=== PATIENT | male | born 1970 | race Caucasian/White ===

== ENCOUNTER 2021-06-27 14:45 | Emergency (ER) | payer BC, OTHER | END 2021-06-27 16:04 | disposition home or self-care (01) | LOC: MADERS 14:45 | DX: E11.621 Type 2 diabetes mellitus with foot ulcer (principal); L97.529 Non-pressure chronic ulcer of other part of left foot with unspecified severity; E11.65 Type 2 diabetes mellitus with hyperglycemia; I10 Essential (primary) hypertension; F17.220 Nicotine dependence, chewing tobacco, uncomplicated | CPT/HCPCS: 87070; 87077; 87186; 87205 ==

== ENCOUNTER 2021-09-28 08:28 | Emergency (ER) | payer BC, OTHER ==
[~2021-09-28 08:28] MED LIST: Sodium Chloride 0.9% 1,000 ML BAG ONE
[2021-09-28 09:08] LABS: #Basophils 0.1 thou/uL (0.0-0.2)
[2021-09-28 09:12] LABS: #Eosinphils 0.6 thou/uL (0.0-0.7); #Lymphocytes 2.2 thou/uL (1.20-3.40); #Monocytes 0.9 thou/uL (0.11-0.59); #Neutrophils 3.8 thou/uL (1.40-6.50); %Basophils 1.6 % (0.0-1.0); %Eosinophils 7.9 % (0.0-10.0); %Lymphocytes 29.3 % (21.0-51.0); %Monocytes 11.6 % (0.0-10.0); %Neutrophils 49.7 % (42.0-75.0); Hemoglobin 13.6 g/dL (14.0-18.0); Mean Corpuscular Hemoglobin 30.5 pg (27.0-31.0); Mean Corpuscular Volume 95.3 fL (78.0-98.0); Mean Platelet Volume 8.5 fL (7.4-10.4); Platelet Count 261 thou/uL (130-400); RBC Distribution Width 11.7 % (11.5-14.5); Red Blood Cell (RBC) Count 4.45 mill/uL (4.70-6.10); White Blood Cell (WBC) Count 7.6 thou/uL (4.8-10.8)
[2021-09-28 09:19] LABS: INR-International Normal Ratio 0.9; Prothrombin Time 12.4 sec (12.0-14.7)
[2021-09-28 09:20] LABS: PTT 27.2 sec (22.9-36.1)
[2021-09-28 09:30] LABS: ALT (SGPT) 49 U/L (8-55); AST (SGOT) 66 U/L (5-34); Albumin 4.3 g/dL (3.5-5.0); Alkaline Phosphatase 98 U/L (40-110); Anion Gap 14 mmol/L (10-20); BUN (Urea Nitrogen) 10 mg/dL (8.4-25.7); Bilirubin, Total 0.5 mg/dL (0.2-1.2); Calc. Creatinine Clearance 0 mL/min (70-130); Calcium 10.2 mg/dL (7.8-10.44); Carbon Dioxide 30 mmol/L (22-29); Chloride 101 mmol/L (98-107); Globulin 3.3 g/dL (2.4-3.5); Glucose 156 mg/dL (70-105); Potassium 4.8 mmol/L (3.5-5.1); Protein, Total 7.6 g/dL (6.0-8.3); Sodium 140 mmol/L (136-145)
== END 2021-09-28 09:50 | disposition home or self-care (01) ==
LOC: MADERS 08:28
DX: K64.4 Residual hemorrhoidal skin tags (principal); E78.5 Hyperlipidemia, unspecified; E78.00 Pure hypercholesterolemia, unspecified; E11.9 Type 2 diabetes mellitus without complications; I10 Essential (primary) hypertension; F17.220 Nicotine dependence, chewing tobacco, uncomplicated; Z79.4 Long term (current) use of insulin; Z79.899 Other long term (current) drug therapy
CPT/HCPCS: 80053; 82274; 85025; 85610; 85730; 86850; 86900; 86901; 99283; J7050

== ENCOUNTER 2021-11-04 13:19 | Outpatient (CLI) | payer BC, OTHER ==
[2021-11-04 13:57] LABS: #Basophils 0.1 thou/uL (0.0-0.2); #Eosinphils 0.5 thou/uL (0.0-0.7); #Lymphocytes 2.2 thou/uL (1.20-3.40); #Monocytes 0.9 thou/uL (0.11-0.59); #Neutrophils 6.6 thou/uL (1.40-6.50); %Basophils 0.8 % (0.0-1.0); %Eosinophils 4.9 % (0.0-10.0); %Lymphocytes 21.8 % (21.0-51.0); %Monocytes 8.7 % (0.0-10.0); %Neutrophils 63.8 % (42.0-75.0); Hemoglobin 12.6 g/dL (14.0-18.0); Mean Corpuscular HGB CONC 32.9 g/dL (32.0-36.0); Mean Corpuscular Hemoglobin 30.6 pg (27.0-31.0); Mean Corpuscular Volume 93.1 fL (78.0-98.0); Mean Platelet Volume 8.7 fL (7.4-10.4); Platelet Count 290 thou/uL (130-400); RBC Distribution Width 10.8 % (11.5-14.5); Red Blood Cell (RBC) Count 4.12 mill/uL (4.70-6.10); White Blood Cell (WBC) Count 10.3 thou/uL (4.8-10.8)
[2021-11-04 14:09] LABS: ALT (SGPT) 24 U/L (8-55); AST (SGOT) 30 U/L (5-34); Albumin 4.2 g/dL (3.5-5.0); Alkaline Phosphatase 77 U/L (40-110); Anion Gap 20 mmol/L (10-20); BUN (Urea Nitrogen) 11 mg/dL (8.4-25.7); Bilirubin, Total 0.4 mg/dL (0.2-1.2); Calc. Creatinine Clearance 0 mL/min (70-130); Carbon Dioxide 20 mmol/L (22-29); Chloride 94 mmol/L (98-107); Globulin 3.2 g/dL (2.4-3.5); Glucose 197 mg/dL (70-105); Potassium 4.4 mmol/L (3.5-5.1); Protein, Total 7.4 g/dL (6.0-8.3); Sodium 130 mmol/L (136-145)
[2021-11-04 21:34] LABS: Hemoglobin A1c 9.2 % (4.0-6.0)
== END 2021-11-04 13:20 | disposition home or self-care (01) ==
LOC: MADLAB 13:19 → MADRAD 13:20
PROVIDERS: ATTEND Family Medicine
DX: Z01.810 Encounter for preprocedural cardiovascular examination (principal)
CPT/HCPCS: 36415; 71046; 80050; 83036; 93005; 93010

== ENCOUNTER 2025-07-26 00:07 | Emergency (ER) | payer BC ==
[2025-07-26] MEDS ORDERED: Albuterol 2.5 MG (0.5 mL) NEB ONE ×2 (00:25→01:02)
[2025-07-26] MEDS ORDERED: Ipratropium Bromide 2.5 ml Neb ONE ×2 (00:25→01:02)
[2025-07-26] MEDS ORDERED: Magnesium 2 GM/50 ML BAG (IN WATER) ONE (00:25)
[2025-07-26 00:43] LABS: #Basophils 0.1 thou/uL (0.0-0.2); #Eosinophils 0.7 thou/uL (0.0-0.7); #Lymphocytes 0.8 thou/uL (1.20-3.40); #Monocytes 0.9 thou/uL (0.11-0.59); #Neutrophils 6.7 thou/uL (1.40-6.50); %Basophils 1.5 % (0.0-1.0); %Eosinophils 7.7 % (0.0-10.0); %Lymphocytes 8.9 % (21.0-51.0); %Monocytes 9.3 % (0.0-10.0); %Neutrophils 72.5 % (42.0-75.0); Anisocytosis SLIGHT = 6-15 cells (100X) (0-5/hpf); Hematocrit 38.5 % (42.0-52.0); Hemoglobin 11.6 g/dL (14.0-18.0); MDiff Complete? YES; Mean Corpuscular Hemoglobin 22.5 pg (27.0-31.0); Mean Corpuscular Volume 74.9 fl (78.0-98.0); Platelet Count 381 10x3/uL (130-400); Red Blood Cell (RBC) Count 5.14 mill/uL (4.70-6.10); White Blood Cell (WBC) Count 9.3 10x3/uL (4.8-10.8)
[2025-07-26 00:46] LABS: ALT (SGPT) 52 U/L (Less than 45); AST (SGOT) 86 U/L (11-34); Albumin 4.5 g/dL (3.1-4.5); Alkaline Phosphatase 179 U/L (40-110); Anion Gap 17 mmol/L (10-20); BUN (Urea Nitrogen) 13 mg/dL (8.4-25.7); Bilirubin, Total 0.4 mg/dL (0.3-1.2); Calc. Creatinine Clearance 0 mL/min (70-130); Calcium 9.8 mg/dL (7.8-10.44); Carbon Dioxide 22 mmol/L (22-29); Chloride 99 mmol/L (98-107); Globulin 3.8 g/dL (2.4-3.5); Glucose 165 mg/dL (70-105); Potassium 5.0 mmol/L (3.5-5.1); Sodium 133 mmol/L (136-145)
[2025-07-26 00:49] LABS: Bicarbonate (HCO3v) 26.5 mmol/L (22.0-28.0); CO2 Tension (PvCO2) 47.9 mmHg (42.0-51.0); Calcium, Ionized 1.26 mmol/L (1.15-1.33); Chloride 98 mmol/L (98-107); Hemoglobin - Calc 13.3 g/dL (14.0-18.0); Potassium 4.9 mmol/L (3.5-5.1); Sodium 132 mmol/L (138-145); T. Carbon Dioxide 28.0 mmol/L (22.0-28.0); vO2 Saturation-calc 99.3 % (60.0-85.0)
[2025-07-26] MEDS ORDERED: Iopamidol 370 76% 100 ML VIAL ONE (09:00)
== END 2025-07-26 02:36 | disposition home or self-care (01) ==
LOC: MADERS 00:07
DX: J20.9 Acute bronchitis, unspecified (principal); R74.01 Elevation of levels of liver transaminase levels; E11.9 Type 2 diabetes mellitus without complications; I10 Essential (primary) hypertension; Z79.899 Other long term (current) drug therapy; Z79.4 Long term (current) use of insulin; F17.220 Nicotine dependence, chewing tobacco, uncomplicated; E78.5 Hyperlipidemia, unspecified
CPT/HCPCS: 71045; 71275; 80053; 82330; 82435; 82803; 84132; 84295; 85014; 85025; 85379; 87426; 93005; 94760; 96365; 96366; 96375; J2919; J3475; J7611; J7620; J7644; Q9967

== ENCOUNTER 2025-08-02 15:00 | Emergency (ER) | payer BC ==
[2025-08-02] MEDS ORDERED: HYDROcodone/Acetaminophen 10/325 mg Tablet ONE (15:32)
== END 2025-08-02 16:21 | disposition home or self-care (01) ==
LOC: MADERS 15:00
DX: S20.212A Contusion of left front wall of thorax, initial encounter (principal); I10 Essential (primary) hypertension; E11.9 Type 2 diabetes mellitus without complications; F17.220 Nicotine dependence, chewing tobacco, uncomplicated; Z79.899 Other long term (current) drug therapy; Z79.52 Long term (current) use of systemic steroids; W10.9XXA Fall (on) (from) unspecified stairs and steps, initial encounter; Y93.01 Activity, walking, marching and hiking
CPT/HCPCS: 99283

== ENCOUNTER 2025-10-24 08:28 | Emergency (ER) | payer BC ==
[2025-10-24 09:09] LABS: #Basophils 0.1 thou/uL (0.0-0.2); #Eosinophils 1.0 thou/uL (0.0-0.7); #Lymphocytes 2.0 thou/uL (1.20-3.40); #Monocytes 0.8 thou/uL (0.11-0.59); #Neutrophils 4.1 thou/uL (1.40-6.50); %Basophils 1.5 % (0.0-1.0); %Eosinophils 13.0 % (0.0-10.0); %Lymphocytes 25.1 % (21.0-51.0); %Monocytes 10.1 % (0.0-10.0); %Neutrophils 50.3 % (42.0-75.0); Hematocrit 38.3 % (42.0-52.0); Hemoglobin 12.2 g/dL (14.0-18.0); Mean Corpuscular Hemoglobin 27.0 pg (27.0-31.0); Mean Corpuscular Volume 84.9 fl (78.0-98.0); Platelet Count 289 10x3/uL (130-400); Red Blood Cell (RBC) Count 4.51 mill/uL (4.70-6.10); White Blood Cell (WBC) Count 8.0 10x3/uL (4.8-10.8)
[2025-10-24 09:21] LABS: Bicarbonate (HCO3v) 28.9 mmol/L (22.0-28.0); CO2 Tension (PvCO2) 64.7 mmHg (42.0-51.0); Calcium, Ionized 1.27 mmol/L (1.15-1.33); Chloride 103 mmol/L (98-107); Hemoglobin - Calc 13.8 g/dL (14.0-18.0); Potassium 5.5 mmol/L (3.5-5.1); Sodium 135 mmol/L (138-145); T. Carbon Dioxide 30.9 mmol/L (22.0-28.0); vO2 Saturation-calc 68.0 % (60.0-85.0)
[2025-10-24 09:28] LABS: ALT (SGPT) 11 U/L (Less than 45); AST (SGOT) 18 U/L (11-34); Albumin 4.3 g/dL (3.1-4.5); Alkaline Phosphatase 69 U/L (40-110); Anion Gap 15 mmol/L (10-20); BUN (Urea Nitrogen) 21 mg/dL (8.4-25.7); Bilirubin, Total 0.3 mg/dL (0.3-1.2); Calc. Creatinine Clearance 0 mL/min (70-130); Calcium 9.6 mg/dL (7.8-10.44); Carbon Dioxide 26 mmol/L (22-29); Chloride 99 mmol/L (98-107); Globulin 3.4 g/dL (2.4-3.5); Glucose 180 mg/dL (70-105); Potassium 5.4 mmol/L (3.5-5.1); Sodium 135 mmol/L (136-145)
[2025-10-24] MEDS ORDERED: Bacitracin 1 PK ONE (10:38)
== END 2025-10-24 10:46 | disposition home or self-care (01) ==
LOC: MADERS 08:28
DX: L02.612 Cutaneous abscess of left foot (principal); L97.529 Non-pressure chronic ulcer of other part of left foot with unspecified severity; E11.65 Type 2 diabetes mellitus with hyperglycemia; I10 Essential (primary) hypertension; F17.220 Nicotine dependence, chewing tobacco, uncomplicated; Z79.899 Other long term (current) drug therapy; Z79.4 Long term (current) use of insulin
CPT/HCPCS: 10060; 80053; 82330; 82803; 83605; 85025; 87070; 87077; 87186; 87205; J7030